=== PATIENT | female | born 1965 | race Caucasian/White ===

== ENCOUNTER 2018-05-09 12:56 | Emergency (ER) | payer BC ==
[2018-05-09 13:21] VITALS: BP 124/69
--- NOTE | 2018-05-09 14:03 | UC ---
Skin Complaint HPI - HPI Summary HPI Summary: PATIENT PRESENTS WITH TENDER, RED AREA ON HER RIGHT MID BACK THAT SHE DISCOVERED A FEW DAYS AGO. STATES SHE THOUGHT SHE GOT A SPIDER BITE IN THAT SAME AREA ABOUT 2 MONTHS AGO BUT THAT AFTER SEVERAL WEEKS IT HEALED OVER. SHE ALSO NOTICED A SWOLLEN PAINFUL LYMPH NODE IN HER RIGHT ARMPIT. SHE DENIES ANY FEVER. - History of Current Complaint Chief Complaint: UCSkin Time Seen by Provider: 05/09/18 13:31 Stated Complaint: SKIN COMPLAINT Hx Obtained From: Patient Onset/Duration: Gradual Onset, Lasting Days, Still Present Timing: Constant Onset Severity: Moderate Current Severity: Moderate Pain Intensity: 0 Pain Scale Used: 0-10 Numeric Character: Pain, Redness, Raised Aggravating Factor(s): Touch Alleviating Factor(s): Nothing Associated Signs & Symptoms: Positive: Tenderness. Negative: Nausea, Fever, Chills - Allergy/Home Medications Allergies/Adverse Reactions: Allergies Allergy/AdvReac Type Severity Reaction Status Date / Time Penicillins Allergy Joint Pain Verified 05/09/18 13:13 Sulfa (Sulfonamide Allergy Altered Verified 05/09/18 13:13 Antibiotics) Mental Status Home Medications: Home Medications Black Cohosh 40 mg PO DAILY 05/09/18 [History Confirmed 05/09/18] Estradiol [Yuvafem] 10 mcg PO WEEKLY 05/09/18 [History Confirmed 05/09/18] FLUoxetine CAP* [Prozac CAP*] 20 mg PO DAILY 05/09/18 [History Confirmed ] Flaxseed Oil 1 each PO DAILY 05/09/18 [History Confirmed 05/09/18] Multivit-Min/Folic Acid/Vit K1 [Multi For Her 50 Plus Softgel] 1 each PO DAILY 05/09/18 [History Confirmed 05/09/18] Review of Systems Constitutional: Negative Skin: Other - REDNESS Respiratory: Negative Cardiovascular: Negative Gastrointestinal: Negative All Other Systems Reviewed And Are Negative: Yes PMH/Surg Hx/FS Hx/Imm Hx Other Cancer History: MELANOMA - Surgical History Surgical History: Yes Surgery Procedure, Year, and Place: WIDE EXCISION MELANOMA LEFT SIDE OF BACK. TONSILLECTOMY - Family History Known Family History: Positive: Hypertension - Social History Alcohol Use: Weekly Substance Use Type: None Smoking Status (MU): Never Smoked Tobacco Physical Exam Triage Information Reviewed: Yes Appearance: Well-Appearing, No Pain Distress, Well-Nourished Vital Signs: Initial Vital Signs Temp 99.5 F 05/09/18 13:11 Pulse 79 05/09/18 13:11 Resp 15 05/09/18 13:11 BP 124/69 05/09/18 13:11 Pulse Ox 99 05/09/18 13:11 Vital Signs Reviewed: Yes Eyes: Positive: Conjunctiva Clear ENT: Positive: Hearing grossly normal Neck: Positive: Supple Respiratory: Positive: No respiratory distress, No accessory muscle use Cardiovascular: Positive: Pulses Normal Abdomen Description: Positive: Soft Musculoskeletal: Positive: No Edema Neurological: Positive: Alert Psychological: Positive: Age Appropriate Behavior Skin: Positive: Other - 4CM TENDER AREA OF ERYTHEMA AND INDURATION RIGHT MID BACK WITH 0.8MM RAW AREA CENTRALLY. 1.5CM, PAINFUL, FREELY MOBILE LYMPH NODE RIGHT PECTORAL LYMPH NODE REGION Course/Dx - Diagnoses Provider Diagnoses: 1. CELLULITIS - BACK. 2. ISOLATED LAD Discharge - Sign-Out/Discharge Documenting (check all that apply): Discharge/Admit/Transfer - Discharge Plan Condition: Stable Disposition: HOME Prescriptions: Cephalexin CAP* [Keflex 500 CAP*] 1,000 mg PO BID #28 cap Patient Education Materials: Cellulitis (ED), Lymphadenopathy (ED) Referrals: Samira Carrera MD [Primary Care Provider] - If Needed Additional Instructions: TAKE THE ANTIBIOTIC FOR THE FULL COURSE TO TREAT YOUR SKIN INFECTION. THE SWOLLEN LYMPH NODE IS LIKELY A RESULT OF THE INFECTION AND SHOULD IMPROVE YOUR INFECTION RESOLVES. IF IT DOES NOT, FOLLOW-UP WITH YOUR PCP YOU MAY NEED FURTHER TESTING AND/OR IMAGING. SEEK FOLLOW-UP IF YOU DEVELOP FURTHER SPREADING REDNESS OF THE SKIN, PURULENT DRAINAGE, FEVER, INCREASED PAIN OR ANY OTHER CONCERNING SYMPTOMS. - Billing Disposition and Condition Condition: STABLE Disposition: Home
== END 2018-05-09 13:57 | disposition home or self-care (01) ==
LOC: UCCORT 12:56
DX: L03.312 Cellulitis of back [any part except buttock and flank] (principal); R59.0 Localized enlarged lymph nodes; Z88.0 Allergy status to penicillin; Z88.2 Allergy status to sulfonamides
CPT/HCPCS: 99202; G0463

== ENCOUNTER 2018-09-12 11:18 | Emergency (ER) | payer BC ==
[2018-09-12 11:40] VITALS: BP 134/76
--- NOTE | 2018-09-12 12:56 | UC ---
Skin Complaint HPI - HPI Summary HPI Summary: Pt c/o sudden onset of "cellulitis" on right lower medial back. Pt stated she had "the same thing 3 months ago" and was given antibiotics and "it cleared up" . Pt states that the skin is "slightly painful and itchy". Pt denies hx of shingles. Had chicken pox as child. - History of Current Complaint Chief Complaint: UCSkin Time Seen by Provider: 09/12/18 12:47 Stated Complaint: SKIN CONCERN Hx Obtained From: Patient ?: No Onset/Duration: Sudden Onset, Lasting Days Skin Exposure Onset/Duration: Days Ago Timing: Constant Onset Severity: Mild Current Severity: Mild Pain Intensity: 1 Location: Discrete - left medial lower back Character: Pruritus, Pain, Raised Aggravating Factor(s): Touch Alleviating Factor(s): Nothing - Allergy/Home Medications Allergies/Adverse Reactions: Allergies Allergy/AdvReac Type Severity Reaction Status Date / Time shellfish derived Allergy Intermediate Rash Verified 09/12/18 11:38 Penicillins Allergy Joint Pain Verified 09/12/18 11:38 Sulfa (Sulfonamide Allergy Altered Verified 09/12/18 11:38 Antibiotics) Mental Status Review of Systems Constitutional: Negative Skin: Rash Eyes: Negative ENT: Negative Respiratory: Negative Cardiovascular: Negative Gastrointestinal: Negative Genitourinary: Negative Motor: Negative Neurovascular: Negative Musculoskeletal: Negative Neurological: Negative Psychological: Negative Is Patient Immunocompromised?: No All Other Systems Reviewed And Are Negative: Yes PMH/Surg Hx/FS Hx/Imm Hx Previously Healthy: Yes - Surgical History Surgical History: Yes Surgery Procedure, Year, and Place: WIDE EXCISION MELANOMA LEFT SIDE OF BACK. TONSILLECTOMY - Family History Known Family History: Positive: Hypertension - Social History Occupation: Employed Full-time Lives: With Family Alcohol Use: Daily Substance Use Type: None Smoking Status (MU): Never Smoked Tobacco Have You Smoked in the Last Year: No Physical Exam Triage Information Reviewed: Yes Appearance: Well-Appearing Vital Signs: Initial Vital Signs Temp 97.9 F 09/12/18 11:35 Pulse 76 09/12/18 11:35 Resp 18 09/12/18 11:35 BP 134/76 09/12/18 11:35 Pulse Ox 100 09/12/18 11:35 Vital Signs Reviewed: Yes Eye Exam: Normal ENT Exam: Normal ENT: Positive: Hearing grossly normal Dental Exam: Normal Neck exam: Normal Neck: Positive: Enlarged Nodes @ - right lower axilla. Respiratory Exam: Normal Respiratory: Positive: No respiratory distress Musculoskeletal Exam: Normal Neurological Exam: Normal Psychological: Positive: Normal Response To Family Skin: Positive: rashes - erythematous irregular circular area right medial lower back, with raised vessicles intact vessicles pinprick, size of erythematous area is ~ 3 cm area c/o mild tenderness at erythemtous site Course/Dx - Course Course Of Treatment: I discussed my concern that this may be shingles and not cellulitis. Pt stated that she knows this is cellulitis and she had the exact same thing 3 months ago in the exact same area. I referred pt to her named dermatiologist an dher PCP for routine f/u - Differential Diagnoses - Skin Complaint Differential Diagnoses: Cellulitis, Varicella Zoster - Diagnoses Provider Diagnoses: cellulitis Discharge - Sign-Out/Discharge Documenting (check all that apply): Patient Departure All imaging exams completed and their final reports reviewed: No Studies - Discharge Plan Condition: Stable Disposition: HOME Prescriptions: Cephalexin CAP* [Keflex 500 CAP*] 500 mg PO Q8H #21 cap Patient Education Materials: Cellulitis (ED) Referrals: Samira Carrera MD [Primary Care Provider] - 5 Days Additional Instructions: Please follow up with your celery wrapper as soon as possible. - Billing Disposition and Condition Condition: STABLE Disposition: Home - Attestation Statements Provider Attestation: I was available for consult. This patient was seen by the NA[facility]. The patient was not presented to, seen by, or examined by me. -Alley
== END 2018-09-12 13:05 | disposition home or self-care (01) ==
LOC: UCCORT 11:18
DX: L03.312 Cellulitis of back [any part except buttock and flank] (principal); Z88.0 Allergy status to penicillin; Z88.1 Allergy status to other antibiotic agents
CPT/HCPCS: 99212; G0463